=== PATIENT | female | born 1980 | race Two or more races ===

== ENCOUNTER 2021-03-02 20:11 | Emergency (ER) | payer MEDICAID ==
[~2021-03-02] VITALS: Ht 152.4 cm; Wt 65.8 kg
[2021-03-02 21:31] VITALS: BP 125/75
== END 2021-03-03 00:20 | disposition home or self-care (01) ==
LOC: ER 20:15
DX: G43.909 Migraine, unspecified, not intractable, without status migrainosus (principal); Z98.51 Tubal ligation status
CPT/HCPCS: 70450